=== PATIENT | male | born 1965 | race Two or more races ===

== ENCOUNTER 2017-03-05 13:00 | Observation (INO) | payer BC ==
[~2017-03-05] VITALS: Ht 177.8 cm; Wt 74.6 kg
--- NOTE | ~2017-03-05 | ECHO ---
Transthoracic Echocardiography Report (TTE) Demographics Patient Name YOLETTE WHATLEY Date of Study 03/05/2017 [id number] Patient Number [id number] Visit Number [id number] Date of 1965 Room Number G6314 Gender Male Number Age 51 year(s) Referring Lita Valente Pbx Repairer Gustavo Lowry RVT Physician Physician Interpreting Lita Rice Farmer Physician Sidra LIMA Supervising Ordering Lita LIMA/MLP Physician Sidra LIMA Nurse Stress Typing Office Worker Conclusions Summary TDS. At least moderate LVH with normal internal dimensions,EF and WM without LVOT obstruction. LA is probably mildly dilated. Trivial MR and TR. Procedure Type of Study TTE procedure:2D Echocardiogram. Procedure Date Date: 03/05/2017 Start: 02:23 PM Study Location: Inpatient Portable Technical Quality: Adequate visualization Indications:Atrial Fibrillation w/ RVR. Appropriate Use Criteria: 9 Patient Status: STAT HR: 124 bpm BP: 134/79 mmHg M-Mode/2D Measurements LV Diastolic Dimension: 4.15 cm LV Systolic Dimension: 2.66 cm LV Septum Diastolic: 1.47 cm LV PW Diastolic: 1.28 cm AO Root Dimension: 2.8 cm Cardiac Output: 5.98 l/min LA Dimension: 2.7 cm RV Diastolic Dimension: 2.09 cm LA volume: 92 ml LVOT: 2.2 cm LVOT VTI: 12.7 cm RV Base: 2.15 cm LV Stroke volume: 48.25 ml RV Mid: 1.74 cm RV Length: 4.77 cm TAPSE: 1.6 cm TDI-S': 16.1 cm/s Doppler Measurements AV Peak Velocity: 1.41 m/s MV Peak E-Wave: 0.68 m/s AV Peak Gradient: 7.95 mmHg AV Mean Gradient: 4 mmHg MV P1/2t: 52 msec LVOT Peak Velocity: 0.73 m/s TR Velocity:1.72 m/s PV Peak Velocity: 1.24 m/s TR Gradient:11.83 mmHg PV Peak Gradient: 6.15 mmHg Estimated RAP:10 mmHg Estimated PASP: 21.83 mmHg Estimated RVSP: 22 mmHg E' Lateral Velocity: 0.15 m/s Findings Left Ventricle At least moderate concentric left ventricular hypertrophy with normal internal dimension,EF and WM. Right Ventricle Normal right ventricle structure and function. Left Atrium The left atrium is probably mildly dilated. Right Atrium Normal right atrial size. Mitral Valve Trivial mitral regurgitation by color Doppler. Aortic Valve Normal aortic valve structure and function. Tricuspid Valve Trivial tricuspid regurgitation by color Doppler. Pulmonic Valve Normal pulmonic valve structure and function. Pericardial Effusion No evidence of pericardial effusion. Miscellaneous Visualized portions of the aortic root and ascending aorta appear normal in size. Pleural Effusion No evidence of pleural effusion. Contractility Score LV regional wall motion:(0-Non visualized 1-Normal 2-Hypokinesis 3-Akinesis 4-Dyskinesis 5-Aneurysm) Signature dtt: Sidra London dtd: 03/05/17 1423 Physician Self Edit
--- NOTE | ~2017-03-05 | CON ---
PATIENT'S NAME: CHACORTA [facility] AGE: 51 Y [address] ROOM: [place] [address] LOCATION: GPCU ADMIT DATE: 03/05/2017 Consultation DISCHARGE DATE: FAMILY PHYSICIAN: PHYSICIAN, UNKNOWN ATTENDING PHYSICIAN: Sidra London REASON FOR CONSULTATION: Alcohol withdrawal. CHIEF COMPLAINT: Funny sensation in the chest. HISTORY OF PRESENT ILLNESS: A 51-year-old gentleman with a past medical history of hypertension, not taking any medication, heavy alcohol abuse. He presented to [facility] today with funny feeling in the chest, which had been going on for the last night, got worse in the morning, associated with some tightness in the chest, some shortness of breath, tremors of the hands and generalized feeling of being sick. This was not associated with any nausea, vomiting, abdominal pain, burning on urination, PND, orthopnea, or leg swelling. He presented to the [facility], he was found to be in atrial fibrillation with RVR. Basic lab work was done which was unremarkable and he was transferred here for medical care. Currently, he is on heparin drip, Cardizem drip and some IV fluids. Cardiology is the primary on this patient. PAST MEDICAL HISTORY: Hypertension and heavy alcohol use. MEDICATIONS: None. ALLERGIES: NO KNOWN DRUG ALLERGIES. SOCIAL HISTORY: 1. Lifelong smoker. 2. Alcohol use 8 to 6 beers plus one pint of whiskey every day. FAMILY HISTORY: Negative for any alcoholism, heart disease, or cardiovascular disease. PHYSICAL EXAMINATION: VITAL SIGNS: Blood pressure 127/70, heart rate 103, respiratory rate 14, saturating 95, afebrile. GENERAL: In mild acute distress, due to tremors. Alert and oriented x3. PATIENT'S NAME: YOLETTE WHATLEY [facility] AGE: 51 Y [address] ROOM: [place] [address] LOCATION: GPCU ADMIT DATE: 03/05/2017 Consultation DISCHARGE DATE: FAMILY PHYSICIAN: PHYSICIAN, UNKNOWN ATTENDING PHYSICIAN: Sidra London HEENT: Head: Atraumatic, normocephalic. Eyes: Nonicteric. No pallor. Oropharynx, moist mucous membranes. CARDIOVASCULAR: Variable S1, normal S2. No murmurs, gallops, or rubs. LUNGS: Clear to auscultation bilaterally. ABDOMEN: Soft, nontender, nondistended. Bowel sounds present. EXTREMITIES: No clubbing, cyanosis, or edema. PSYCH: Normal affect, mood, and speech. NEURO: Cranial nerves 2 through 12 intact. No motor or sensory deficits. MUSCULOSKELETAL: No muscle tenderness or joint swelling noted. ENDOCRINE: No thyromegaly or myxedema noted. LABORATORY DATA: Lab work from the [facility] was reviewed which was pretty much unremarkable. EKG showed atrial fibrillation with RVR. ASSESSMENT/PLAN: 1. Alcohol withdrawal. We are going to start him on alcohol withdrawal protocol. We are going to give him Librium 100 mg upfront given his heavy alcohol abuse as well as the current nature of his disease process. 2. Atrial fibrillation. We will defer to Cardiology. We will continue to follow this patient. MD RANDY MENDOZA/robin /[id number] d: 03/06/17 0055 t: 03/06/17 0216, CONSULTATION REPORT
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
[2017-03-05] MEDS ORDERED: MEN 50 PLUS MU1 EACH PO (13:35)
[2017-03-05] MEDS ORDERED: ADVIL200 MG PO (13:35)
[2017-03-06 02:36] LABS: ANION GAP 11.3 (10.0-19.0); BLOOD UREA NITROGEN 9 mg/dL (6-24); CHLORIDE 106 mMol/L (96-110); CO2 25 mMol/L (22-32); CREATININE 0.7 mg/dL (0.6-1.3); MAGNESIUM 2.2 mg/dL (1.8-2.6); POTASSIUM 3.3 mMol/L (3.7-5.1); SODIUM 139 mMol/L (135-145)
[2017-03-06] MEDS ORDERED: ASPIRIN325 MG PO (13:18)
[2017-03-06] MEDS ORDERED: ASPIRIN EC81 MG PO (13:18)
[2017-03-06] MEDS ORDERED: ZEBETA5 MG PO (13:19)
[2017-03-06] MEDS ORDERED: FOLIC ACID1 MG PO (13:20)
[2017-03-06] MEDS ORDERED: THERAGRAN-M1 TAB PO (13:21)
[2017-03-06] MEDS ORDERED: MAGNESIUM400 M1 PO (13:21)
[2017-03-06] MEDS ORDERED: NICODERM / HABIT7 MG TOP (13:23)
[2017-03-06] MEDS ORDERED: THIAMINE HCL100 MG PO (13:24)
[2017-03-06] MEDS ORDERED: MULTAQ400 MG PO (13:25)
== END 2017-03-06 14:00 | disposition disaster alternative care site (69) ==
LOC: GPCU 13:13
PROVIDERS: Internal Medicine; ADMIT Internal Medicine Interventional Cardiology
DX: I48.91 Unspecified atrial fibrillation (principal); I10 Essential (primary) hypertension; F10.229 Alcohol dependence with intoxication, unspecified; E87.6 Hypokalemia; F17.200 Nicotine dependence, unspecified, uncomplicated
CPT/HCPCS: G0378; J1644; J2060; J3411; J3475; J7030; J7040